=== PATIENT | male | born 1960 | race Caucasian/White ===

== ENCOUNTER 2016-06-30 06:12 | Day surgery (SDC) | payer BC ==
[2016-06-30] MEDS ORDERED: LACTATED RINGERS 1,000 ML IV ONE (07:07)
[2016-06-30] MEDS ORDERED: MIDAZOLAM 2 MG/2 ML VIAL IVP ONE (07:42)
[2016-06-30] MEDS ORDERED: fentaNYL 250 MCG/5 ML VIAL IVP ONE (07:42)
== END 2016-06-30 06:13 | disposition home or self-care (01) ==
PROC: 0DBN8ZX Excision of Sigmoid Colon, Via Natural or Artificial Opening Endoscopic, Diagnostic (ICD-10-PCS; 2016-06-30)
PROC: 0DBM8ZX Excision of Descending Colon, Via Natural or Artificial Opening Endoscopic, Diagnostic (ICD-10-PCS; 2016-06-30)
PROC: 0DBN8ZX Excision of Sigmoid Colon, Via Natural or Artificial Opening Endoscopic, Diagnostic (ICD-10-PCS; 2016-06-30)
PROC: 0DBP8ZX Excision of Rectum, Via Natural or Artificial Opening Endoscopic, Diagnostic (ICD-10-PCS; principal; 2016-06-30 07:30)
DX: Z12.11 Encounter for screening for malignant neoplasm of colon (principal); C19 Malignant neoplasm of rectosigmoid junction; K62.1 Rectal polyp; D12.4 Benign neoplasm of descending colon; D12.5 Benign neoplasm of sigmoid colon; E11.9 Type 2 diabetes mellitus without complications; Z79.4 Long term (current) use of insulin; Z79.84 Long term (current) use of oral hypoglycemic drugs; Z83.3 Family history of diabetes mellitus; Z80.9 Family history of malignant neoplasm, unspecified; Z87.891 Personal history of nicotine dependence
CPT/HCPCS: 45380; 45385; J3010; J7120

== ENCOUNTER 2016-07-22 07:51 | Outpatient (CLI) | payer BC ==
[2016-07-22] MEDS ORDERED: GADOBUTROL 7.5 MMOL/7.5 ML VIAL IVP ONE (09:18)
[2016-07-22] MEDS ORDERED: IOPAMIDOL-300 50 ML VIAL PO ONE (11:01)
[2016-07-22] MEDS ORDERED: IOPAMIDOL-300 100 ML VIAL IVP ONE (11:01)
== END 2016-07-22 07:52 | disposition home or self-care (01) ==
DX: C18.9 Malignant neoplasm of colon, unspecified (principal)
CPT/HCPCS: 72197; 74177; A9585; Q9967

== ENCOUNTER 2017-11-03 05:43 | Emergency (ER) | payer OTHER, BC ==
--- NOTE | 2017-11-03 06:35 | XRAY Report ---
Procedure Date: 11/03/2017 Accession Number: [id number] / [id number] Procedure: XR - Hand 3 View LT CPT Code: FULL RESULT: EXAM: LEFT HAND RADIOGRAPHY EXAM DATE: 11/03/2017 06:24 AM. CLINICAL HISTORY: Hand injury and swelling. COMPARISON: None. TECHNIQUE: 3 views. FINDINGS: Bones: Normal. No fractures or bone lesions. Joints: Normal. No subluxations. Soft Tissues: Soft tissue swelling. No foreign body. IMPRESSION: Soft tissue swelling. No evidence of fracture or radiopaque foreign body. RADIA
--- NOTE | 2017-11-03 08:04 | ED Physician Documentation ---
PD HPI UPPER EXT INJURY - Stated complaint Stated Complaint: L HAND/INDEX FINGER PX - Chief complaint Chief Complaint: Ext Problem - History obtained from History obtained from: Patient - History of Present Illness Location: Right, Finger (middle) Type of injury: Twist Where injury occurred: Work Timing - onset: Yesterday Timing - duration: Days (1) Timing - details: Abrupt onset, Still present Improved by: Rest, Immobilization Worsened by: Moving, Palpating Associated symptoms: Swelling. No: Weakness, Numbness Contributing factors: No: Anticoagulated Similar symptoms before: Has not had sx before Recently seen: Not recently seen - Additonal information Additional information: 57-year-old diabetic male was at work yesterday using a 3/8 inch ratchet on an injection molded piece when he was tightening the bolt he felt a sharp sting in the left middle finger. Overnight this has become much worse. He is unable to extend the finger, has swelling over the dorsum of the hand that leads into the forearm. His sugars are running "high" this morning. He states he did eat a lot of pasta last night. He indicates that one week ago he did get poked with a blackberry crump thorn over the crease of the PIP joint and he was able to easily remove this. He thought at the time a "no big deal" Review of Systems Constitutional: denies: Fever Respiratory: denies: Cough GI: denies: Vomiting Skin: denies: Rash Musculoskeletal: reports: Extremity pain, Joint pain, Extremity swelling, Joint swelling, Other. denies: Neck pain, Back pain PD PAST MEDICAL HISTORY - Past Medical History Cardiovascular: None, High cholesterol Respiratory: None, Sleep apnea Endocrine/Autoimmune: Type 2 diabetes : None Psych: None Musculoskeletal: None Derm: None - Present Medications Home Medications: Ambulatory Orders Medication Instructions Recorded Confirmed Insulin Glargine [Lantus] 26 units SQ DAILY 06/30/16 06/30/16 metFORMIN [Glucophage] 500 mg PO BID 06/30/16 06/30/16 Aspirin Chewable [St Jori 81 mg PO DAILY 11/03/17 Aspirin] Cephalexin [Keflex] 500 mg PO QID #28 capsule 11/03/17 - Allergies Allergies/Adverse Reactions: Allergies Allergy/AdvReac Type Severity Reaction Status Date / Time No Known Drug Allergies Allergy Verified 11/03/17 05:59 PD ED PE NORMAL - Vitals Vital signs reviewed: Yes (hypertensive ) - General General: Alert and oriented X 3, No acute distress, Well developed/nourished - HEENT HEENT: Atraumatic, PERRL, EOMI - Respiratory Respiratory: No respiratory distress - Derm Derm: Normal color, Warm and dry, No rash - Extremities Extremities: Other (There is swelling to the dorsum of the left hand with minimal erythema. The hand is held with the fingers in slight flexion. Extension of the middle finger or palpation along the flexor tendon results in exquisit pain that extends into the mid palm. There is no pain to the volar forearm to direct palpation.) - Neuro Neuro: Alert and oriented X 3, java tech 2-12 intact, No motor deficit, No sensory deficit, Normal speech Eye Opening: Spontaneous Motor: Obeys Commands Verbal: Oriented GCS Score: 15 - Psych Psych: Normal mood, Normal affect Results - Vitals Vitals: Vital Signs - 24 hr 11/03/17 05:54 Temperature 36.4 C L Heart Rate 67 Respiratory 16 Rate Blood Pressure 148/81 H O2 Saturation 99 Oxygen O2 Source Room air - Labs Labs: Laboratory Tests 11/03/17 11/03/17 11/03/17 06:12 08:16 08:16 WBC 8.4 RBC 4.29 L Hgb 14.8 Hct 42.2 MCV 98.5 H MCH 34.4 H MCHC 34.9 RDW 13.9 Plt Count 216 MPV 8.5 Neut # (Auto) 5.5 Lymph # (Auto) 1.6 Grundy # (Auto) 0.8 Eos # (Auto) 0.4 Baso # (Auto) 0.1 Absolute Nucleated RBC 0.00 Nucleated RBC % 0.0 ESR 5 Sodium Potassium Chloride Carbon Dioxide Anion Gap BUN Creatinine Estimated GFR (MDRD) Glucose POC Whole Bld Glucose 225 H Calcium Total Bilirubin AST ALT Alkaline Phosphatase Total Protein Albumin Globulin Albumin/Globulin Ratio Lipase 11/03/17 08:16 WBC RBC Hgb Hct MCV MCH MCHC RDW Plt Count MPV Neut # (Auto) Lymph # (Auto) Grundy # (Auto) Eos # (Auto) Baso # (Auto) Absolute Nucleated RBC Nucleated RBC % ESR Sodium 140 Potassium 4.9 Chloride 106 Carbon Dioxide 28 Anion Gap 6.0 BUN 18 Creatinine 0.9 Estimated GFR (MDRD) 88 L Glucose 77 POC Whole Bld Glucose Calcium 9.5 Total Bilirubin 0.6 AST 21 ALT 28 Alkaline Phosphatase 42 Total Protein 7.3 Albumin 4.2 Globulin 3.1 Albumin/Globulin Ratio 1.4 Lipase 60 H - Rads (name of study) hand Radiology: Prelim report reviewed (Impression: Soft tissue swelling. No evidence of fracture or radiopaque foreign body.), EMP read indepedently, See rad report PD MEDICAL DECISION MAKING - ED course Complexity details: reviewed results, re-evaluated patient, considered differential, d/w patient, d/w family ED course: 57-year-old male with a potential prior foreign body to the right vulvar hand has developed acute symptoms consistent with tenosynovitis. Dr. Harper is consulted in the case and examined the patient recommends oral antibiotic today and follow-up tomorrow if worse. The patient's white blood cell count is normal his sedimentation rate is normal. - Sepsis Event Vital Signs: Vital Signs - 24 hr 11/03/ 05:54 Temperature 36.4 C L Heart Rate 67 Respiratory 16 Rate Blood Pressure 148/81 H O2 Saturation 99 Oxygen O2 Source Room air Departure - Departure Disposition: 01 Home, Self Care Clinical Impression: Tenosynovitis of finger Condition: Stable Instructions: Tendonitis and Tenosynovitis Follow-Up: Lawson Valera MD [Primary Care Provider] - Jose Luis Harper MD [Provider Admit Priv/Credential] - Prescriptions: Cephalexin [Keflex] 500 mg PO QID #28 capsule Forms: Activity restrictions
[2017-11-03 08:32] LABS: BASOPHILS # (AUTO) 0.1 10^3/uL (0.0-0.1); BASOPHILS % (AUTO) 0.8 %; EOSINOPHILS # (AUTO) 0.4 10^3/uL (0.0-0.7); EOSINOPHILS % (AUTO) 4.6 %; HGB - HEMOGLOBIN 14.8 g/dL (14.0-18.0); LYMPHOCYTES # (AUTO) 1.6 10^3/uL (1.5-3.5); LYMPHOCYTES % (AUTO) 19.5 %; MEAN CORPUSCULAR HEMOGLOBIN 34.4 pg (27.0-31.0); MEAN CORPUSCULAR HGB CONC 34.9 g/dL (32.0-36.0); MEAN CORPUSCULAR VOLUME 98.5 fL (80.0-94.0); MEAN PLATELET VOLUME 8.5 fL (7.4-11.4); MONOCYTES # (AUTO) 0.8 10^3/uL (0.0-1.0); MONOCYTES % (AUTO) 9.8 %; NEUTROPHILS # (AUTO) 5.5 10^3/uL (1.5-6.6); NEUTROPHILS % (AUTO) 65.3 %; PLT - PLATELET COUNT 216 10^3/uL (130-450); RED BLOOD COUNT 4.29 10^6/uL (4.70-6.10); RED CELL DISTRIBUTION WIDTH 13.9 % (12.0-15.0); WHITE BLOOD COUNT 8.4 x10^3/uL (4.8-10.8)
[2017-11-03 08:45] LABS: ALBUMIN 4.2 g/dL (3.2-5.5); ALBUMIN/GLOBULIN RATIO 1.4 (1.0-2.2); BILIRUBIN,TOTAL 0.6 mg/dL (0.2-1.0); CALCIUM 9.5 mg/dL (8.5-10.3); CREATININE 0.9 mg/dL (0.6-1.2); TOTAL PROTEIN 7.3 g/dL (6.7-8.2)
[2017-11-03] MEDS ORDERED: ceFAZolin 1 GM VIAL IM STA (09:41)
[2017-11-03 10:10] VITALS: BP 133/90
--- NOTE | 2017-11-03 11:41 | CONSULTATION NOTE ---
DATE OF SERVICE: 11/03/2017 Physician: Jose Luis Harper MD REFERRING PHYSICIAN: Dr. Watts of the emergency room department. 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 Patient is a diabetic patient. He has been working with his hands in plastics for many years. He was at work, doing his usual work activities, including using socket wrenches when this injury to his finger occurred. He apparently w as tightening a bolt with a socket wrench and on the pull noted a minor "sting" in the palmar bas e of his finger. He may have had a tiny rita that was superficially lodged in his finger, which he r emoved without any problems. He was able to continue to finish his work. He did apply ice and later heat to his finger. At about 1 in the morning, he awoke, having increasing pain and swelling and pa inful motions of his finger. This eventually prompted his evaluation in the emergency room early thi s morning. Patient denies any fevers or chills. Denies any prior diabetic hand infections. Patient 's activities, including the use of the socket wrench that was noted in our description earlier, were typical of what he does at his job on a repeated basis daily. PHYSICAL EXAMINATION: Patient was afebrile. Patient does hold his left little finger in a flexed at titude. There is some suggestion of a mild swelling with minimal erythema in the palmar base of his index finger. This is quite tender on palpation today from about the PIP joint of his middle finger to the palmar aspect of his metacarpophalangeal joint. There is pain with passive extension of the m iddle finger. Neurovascular appears to be intact distally. Although painful, he does have a flicker of motion at his DIP joint. It is similar to the amount of active motion he had at the other finger tips of his left hand as well. There is no lymphangitis noted. LABORATORY: Patient had a normal white count and normal sedimentation rate. ASSESSMENT: Status post left nondominant middle finger injury--does not appear as if he has a jersey finger by exam and is not a good history for this either. Being a diabetic, we are somewhat concern ed that this might be an early suppurative flexor tenosynovitis. PLAN: I discussed with patient our treatment options and our concerns of an early suppurative flexor tenosynovitis. I would like to cover him with antibiotics either in-house on IV antibiotics versus an outpatient on oral antibiotics for the next 24 hours. Patient appears to be compliant and wishes to avoid hospitalization at this point. We will give him 1 gram of Kefzol IM in the emergency room an d we will give him a multi-day course of oral Keflex. He will keep his hand elevated, apply local he at to the hand and will be excused from work for at least the next week. If he does not note an impr ovement in the next 24 hours or so from this outpatient management, he will avoid eating anything for breakfast and will report to the emergency room for a repeat evaluation. If clinically his exam is not improved, we will proceed to doing a surgical exploration of his flexor compartment of the middle finger to I and D the finger and obtain surgical culture specimens with a working diagnosis of suppu rative flexor tenosynovitis of the finger. If patient is improving, he will again stay off work and will follow up in the orthopedic clinic on Monday for a reevaluation prior for release back to work a nd a check of his finger function. TD: 11/03/2017 10:05
== END 2017-11-03 10:12 | disposition home or self-care (01) ==
LOC: ED 05:43
DX: M65.88 Other synovitis and tenosynovitis, other site (principal); E11.9 Type 2 diabetes mellitus without complications; Z79.4 Long term (current) use of insulin; Z79.82 Long term (current) use of aspirin; X50.0XXA Overexertion from strenuous movement or load, initial encounter; Y99.0 Civilian activity done for income or pay
CPT/HCPCS: 1040M; 36415; 73130; 80053; 83690; 85025; 85651; 96372; 99283

== ENCOUNTER 2019-06-05 18:11 | Outpatient (CLI) | payer BC | END 2019-06-05 18:12 | disposition EMS.NT | LOC: EMS 18:11 | PROVIDERS: ATTEND Surgery | DX: M54.5 Low back pain (principal); V59.9XXA Occupant (driver) (passenger) of pick-up truck or van injured in unspecified traffic accident, initial encounter; Y92.413 State road as the place of occurrence of the external cause ==

== ENCOUNTER 2019-06-06 07:40 | Emergency (ER) | payer OTHER, BC ==
[2019-06-06 07:52] VITALS: BP 168/67
[2019-06-06] MEDS ORDERED: IBUPROFEN 800 MG TABLET PO STA (08:03)
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
== END 2019-06-06 08:38 | disposition home or self-care (01) ==
LOC: ED 07:40
DX: S20.212A Contusion of left front wall of thorax, initial encounter (principal); E11.9 Type 2 diabetes mellitus without complications; Z79.4 Long term (current) use of insulin; V59.49XA Driver of pick-up truck or van injured in collision with other motor vehicles in traffic accident, initial encounter
CPT/HCPCS: 99283; 99284

== ENCOUNTER 2019-09-16 14:45 | Outpatient (CLI) | payer OTHER, BC ==
--- NOTE | 2019-09-16 15:57 | CT Report ---
PROCEDURE: LUMBAR SPINE WO INDICATIONS: BACK PAIN 3 MONTHS TECHNIQUE: Noncontrast 3 mm thick sections acquired from the T12 level to the sacrum. Sagittal and coronal refo rmats were constructed. For radiation dose reduction, the following was used: automated exposure co ntrol, adjustment of mA and/or kV according to patient size. COMPARISON: None. FINDINGS: Image quality: Excellent. There are 5 nonrib-bearing lumbar-type vertebral bodies of normal height and alignment. There is no e vidence of compression fracture. No suspicious lytic or blastic osseous lesion. Small Schmorl nodes a re present at multiple levels. There is vacuum disc phenomenon noted at T11-T12. Prevertebral and par aspinous soft tissues are grossly unremarkable. T12-L1: Normal in appearance. L1-L2: Normal in appearance. L2-L3: Disc bulge flattens the ventral thecal sac slightly. Foraminal component disc bulge contrib remington to mild bilateral neural foraminal stenosis. L3-L4: Disc bulge flattens the ventral thecal sac slightly. Foraminal components of the disc bulge eccentric to mild bilateral foraminal stenosis. L4-L5: Disc bulge slightly flattens the ventral thecal sac. There is possible abutment of the desce nding L5 nerve roots within both subarticular zones. Foraminal components of the disc bulge combine w ith buckling of the ligamentum flavum and facet hypertrophy to produce mild bilateral neural foramina l stenosis. L5-S1: No spinal canal or neural foraminal stenosis. Mild facet hypertrophy. Soft tissues: No retroperitoneal masses or hematomas. Visualized aorta is normal in caliber. IMPRESSION: Mild multilevel multifactorial degenerative changes with no evidence of significant focal nerve root impingement by CT. If there are no contraindications, MRI could be considered to evaluate for potenti al focal nerve root impingement. Reviewed by: René Carlson MD on 09/16/2019 3:56 PM PDT Approved by: René Carlson MD on 09/16/2019 3:56 PM PDT Station ID: [id number]
--- NOTE | 2019-09-16 16:39 | CT Report ---
PROCEDURE: THORACIC SPINE WO INDICATIONS: BACK PAIN 3 MONTHS TECHNIQUE: Noncontrast 3 mm thick sections acquired through the region of interest in the thoracic spine. Sagit denis and coronal reformats were then constructed. For radiation dose reduction, the following was used : automated exposure control, adjustment of mA and/or kV according to patient size. COMPARISON: None. FINDINGS: Image quality: Excellent. Bones: There is normal overall bony alignment. No acute vertebral body compression fractures. No s uspicious sclerotic or lytic bony lesions. Central spinal canal is of normal overall caliber. There is prominent anterior spinal ossification and bridging osteophytes at the T7-T11 level. Scattered mu ltilevel endplate spurring and diffuse facet arthropathy. Lower cervical spondylosis also noted. Soft tissues: No paravertebral masses or hematomas. Visualized posteromedial lungs appear clear. IMPRESSION: Prominent anterior spinal ossification and bridging osteophytes at the T7-T11 level raising possibili ty of DISH (diffuse idiopathic skeletal hyperostosis) Reviewed by: Buzz Weaver MD on 09/16/2019 4:38 PM PDT Approved by: Buzz Weaver MD on 09/16/2019 4:38 PM PDT Station ID: [id number]
--- NOTE | 2019-09-16 16:44 | CT Report ---
PROCEDURE: CERVICAL SPINE WO INDICATIONS: BACK PAIN 3 MONTHS TECHNIQUE: Noncontrast 3 mm thick sections acquired from the skull base to the T4 level. Sagittal and coronal r eformats were then constructed. For radiation dose reduction, the following was used: automated exp osure control, adjustment of mA and/or kV according to patient size. COMPARISON: None. FINDINGS: Image quality: Excellent. Bones: No fractures or dislocations. Visualized superior ribs are intact. Scattered multilevel end plate spurring and diffuse facet arthropathy. Moderate narrowing of the C6-C7 disc space. There is also upper thoracic spondylosis. Soft tissues: Prevertebral soft tissues are normal in thickness. No paravertebral hematomas. No ap ical pneumothoraces. Mild bilateral sphenoid and maxillary sinus disease. Presumed cerumen/debris within the left external auditory canal although recommend direct visual inspection to exclude soft tissue mass. Scattered ca rotid atherosclerotic calcified plaque. IMPRESSION: Multilevel lower cervical spondylosis most pronounced at C6-C7. Diffuse facet arthropathy Presumed cerumen/debris within the left external auditory canal although recommend direct visual insp ection to exclude soft tissue mass. Reviewed by: Buzz Weaver MD on 09/16/2019 4:43 PM PDT Approved by: Buzz Weaver MD on 09/16/2019 4:43 PM PDT Station ID: [id number]
== END 2019-09-16 14:46 | disposition home or self-care (01) ==
LOC: DI 14:45
PROVIDERS: ATTEND Nurse Practitioner Family
DX: M47.812 Spondylosis without myelopathy or radiculopathy, cervical region (principal); J32.0 Chronic maxillary sinusitis; J32.3 Chronic sphenoidal sinusitis; M51.34 Other intervertebral disc degeneration, thoracic region; M47.814 Spondylosis without myelopathy or radiculopathy, thoracic region; M51.46 Schmorl's nodes, lumbar region; M48.061 Spinal stenosis, lumbar region without neurogenic claudication; M25.78 Osteophyte, vertebrae; R93.89 Abnormal findings on diagnostic imaging of other specified body structures
CPT/HCPCS: 72125; 72128; 72131

== ENCOUNTER 2020-01-27 14:24 | Outpatient (CLI) | payer BC, OTHER ==
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
== END 2020-01-27 14:25 | disposition home or self-care (01) ==
LOC: DI 14:24
PROVIDERS: ATTEND Neurological Surgery
DX: M47.27 Other spondylosis with radiculopathy, lumbosacral region (principal); M25.551 Pain in right hip; R10.9 Unspecified abdominal pain
CPT/HCPCS: 72148

== ENCOUNTER 2020-03-06 14:22 | Outpatient (CLI) | payer OTHER ==
--- NOTE | 2020-03-06 17:10 | XRAY Report ---
PROCEDURE: Hip w/Pelvis 1V RT INDICATIONS: RT HIP PAIN TECHNIQUE: AP pelvis with lateral view(s) of the right hip(s). COMPARISON: None. FINDINGS: Bones: No fractures or dislocations. Pelvic ring appears intact. No suspicious bony lesions. Mild right hip degenerative change. Soft tissues: The visualized bowel gas pattern is normal. No suspicious soft tissue calcifications. Extensive calcification of the SFA and profunda bilaterally. IMPRESSION: 1. No evidence acute bony abnormality of the pelvis and right hip. 2. Mild right hip degenerative change. 3. Extensive vascular calcifications consistent with peripheral vascular disease. Findings suggest pr obable diabetes. Reviewed by: Miguel Hsieh MD on 03/06/2020 5:09 PM PST Approved by: Miguel Hsieh MD on 03/06/2020 5:09 PM PST Station ID: [id number]
== END 2020-03-06 14:23 | disposition home or self-care (01) ==
LOC: DI.N 14:22
PROVIDERS: ATTEND Family Medicine
DX: M16.11 Unilateral primary osteoarthritis, right hip (principal)

== ENCOUNTER 2020-04-27 09:15 | Outpatient (CLI) | payer OTHER, BC ==
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
== END 2020-04-27 09:16 | disposition home or self-care (01) ==
LOC: DI 09:15
PROVIDERS: ATTEND Family Medicine
DX: M16.11 Unilateral primary osteoarthritis, right hip (principal); S76.312A Strain of muscle, fascia and tendon of the posterior muscle group at thigh level, left thigh, initial encounter